=== PATIENT | female | born 1940 | race Caucasian/White ===

== ENCOUNTER → 2017-11-21 | Outpatient (CLI) | payer OTHER | DX: Z12.31 Encounter for screening mammogram for malignant neoplasm of breast (principal); Z13.820 Encounter for screening for osteoporosis; Z78.0 Asymptomatic menopausal state; Z96.643 Presence of artificial hip joint, bilateral; M81.0 Age-related osteoporosis without current pathological fracture ==

== ENCOUNTER 2018-01-14 14:53 | Emergency (ER) | payer OTHER ==
--- NOTE | 2018-01-14 15:08 | EDPHY ---
H & P Stated Complaint: Fell this morning;pain R upper leg/hip david w/weight bearing Time Seen by Provider: 01/14/18 15:01 - Personal History Current Tetanus Diphtheria and Acellular Pertussis (TDAP): Yes Tetanus Vaccine Date: WITHIN 10 Y - Medical/Surgical History Other PMH: healthy. bilat total hips/knees - Social History Smoking Status: Never smoked Constitutional: Initial Vital Signs Temperature (C) 36.6 C 01/14/18 14:54 Heart Rate 78 01/14/18 14:54 Respiratory Rate 18 01/14/18 14:54 Blood Pressure 147/85 H 01/14/18 14:54 O2 Sat (%) 97 01/14/18 14:54 O2 Delivery Mode Room Air Allergies/Adverse Reactions: No Allergies [NKDA] Allergy (Verified 01/14/18 14:53) SEASONAL Allergy (Intermediate, Uncoded 02/10/10 10:16) SNEEZY, ITCHY EYES Home Medications: Medication Instructions Recorded NK [No Known Home Meds] 01/14/18 Medical Decision Making - Diagnostics Imaging Results: Imaging Impressions Hip X-Ray 01/14/18 15:29 Impression: 1. Oblique nondisplaced femoral fracture. 2. Minimal lucency associated with the distal femoral stem, which could be related to loosening but is nonspecific. Imaging: Discussed imaging studies w/ branch sales and service representative Radiologist, I viewed and interpreted images myself ED Course/Re-evaluation: CHIEF COMPLAINT: Right hip pain HISTORY OF PRESENT ILLNESS: This patient is a healthy 77 year old female complaining of right hip pain secondary to a mechanical fall earlier today. 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 Returned from vacation, exercising for the first time in a while. She was getting changed after her workout and felt her muscles were tight and fatigued and fell onto her right hip on a tile floor. She cannot identify any precipitating symptoms including dizziness, chest pain, shortness of breath. She did not strike her head or lose consciousness. She was able to get back up with help and drove herself to the ED. She currently does not complain of significant discomfort in the area but feels walking would be difficult. She denies any sharp shooting pains, no radiation of pain, no loss of sensation, paresthesias. She called her self pay specialist who recommended she present for evaluation here in the emergency department. She has no further complaints or concerns. REVIEW OF SYSTEMS: A comprehensive 10 system review of systems is otherwise negative aside from elements mentioned in the history of present illness and medical decision making. PHYSICAL EXAM: HR, BP, O2 Sat, RR. Temp noted General Appearance: Alert, well hydrated, appropriate, and non-toxic appearing. Head: Atraumatic without scalp tenderness or obvious injury Eyes: Pupils equal, round, reactive to light and accommodation, EOMI, no trauma , no injection. Throat: Mucus membranes moist. Neck: Supple, nontender, no lymphadenopathy. Respiratory: No retractions, no distress, no wheezes, and no accessory muscle use. Lungs are clear to auscultation bilaterally. Cardiovascular: Regular rate and rhythm, no murmurs, rubs, or gallops. Bilateral carotid, radial, dorsalis pedis, and posterior tibial pulses intact. Good capillary refill all extremities. Musculoskeletal: Pain with movement of right leg. Otherwise normal active ROM of all extremities, atraumatic. Neurological: Alert, appropriate, and interactive. Nonfocal neuro exam. Skin: No rashes, good turgor, no nodules on palpation. 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 Family history: Noncontributory Social history: . Lives in [place]. Retired. Nonsmoker. No illicit drug use. DIFFERENTIAL DIAGNOSIS: The differential diagnosis for the patient's trauma included but was not limited to intracranial injury, long bone and pelvic bone fractures, spinal injury, intra-abdominal injury, and intra-thoracic injury. MEDICAL DECISION MAKING: This 77 y/o female who presents with right hip pain following a mechanical fall earlier today. No obvious ecchymoses, abrasions, or other signs of trauma. Plan for x-ray of right hip to rule out kirsten-prosthetic fracture, pelvic fracture, or other acute osseous abnormalities. Reviewed x-ray. Evidence of kirsten-prosthetic fracture at distal end of the femoral debora. 15:[address] Medina, radiologist. He concurs. 15:58 Reassessed patient. Discussed imaging results. Patient's orthopedic surgeon is Dr. Garcia. Her right hip replacement was performed 02/07/2013. Plan to consult with Dr. Garcia or self pay specialist marketing production manager for his practice. Patient's NPO status: last solid food 8:30, water 11:30. 16:[address] Garcia, patient's orthopedic surgeon. Patient can follow up outpatient, non-weightbearing, toe-touch only, follow up in one week. If nondisplaced, no surgical correction will be necessary. Reassessed patient. Plan to discharge home in good condition with crutches or walker. Follow up and return precautions discussed. She is comfortable with this plan. Departure - Departure Disposition: Home, Routine, Self-Care Clinical Impression: Kirsten-prosthetic femoral shaft fracture Condition: Good Instructions: Leg Fracture (ED) Additional Instructions: Rest, ice. Take ibuprofen or Tylenol as directed below as needed for pain. Follow up with Dr. Garcia within one week. Use crutches or a walker as directed. Do not bear weight on the right leg, toe-touch only. Return to the emergency department for worsening pain, swelling, numbness, weakness or other concerns. Adult Pain & Fever Control: We recommend Acetaminophen (Tylenol) and Ibuprofen (Motrin,Advil) for pain and fever control. When fever is high or pain severe, both drugs can be used at the same time, but at different intervals. Please note the time differences. Your dose is: Acetaminophen 650mg every 4 to 6 hours Ibuprofen 600mg every 6-8 hours with food Note: do not take Acetaminophen with Hydrocodone (Vicodin, Lortab) or Oxycodone (Percocet). These medications also contain Acetaminophen. No more than 3000mg of Acetaminophen should be taken in 24 hours (for an adult). Referrals: Amos Bledsoe DO [Primary Care Provider] - As per Instructions Delmar Garcia MD [Medical Doctor] - As per Instructions Report Scribed for: Gilson Garber Report Scribed by: Erika Willard Date of Report: 01/14/18 Time of Report: 15:13
[2018-01-14 16:47] VITALS: BP 155/86
== END 2018-01-14 16:46 | disposition home or self-care (01) ==
DX: M97.01XA Periprosthetic fracture around internal prosthetic right hip joint, initial encounter (principal); W19.XXXA Unspecified fall, initial encounter; Y93.B9 Activity, other involving muscle strengthening exercises; Y99.8 Other external cause status; Z96.643 Presence of artificial hip joint, bilateral; Z96.653 Presence of artificial knee joint, bilateral